=== PATIENT | male | born 1980 | race Caucasian/White ===

== ENCOUNTER 2023-12-17 08:50 | Emergency (ER) | payer OTHER ==
[~2023-12-17] VITALS: Ht 177.8 cm; Wt 122.5 kg
[2023-12-17] MEDS ORDERED: ACETAMINOPHEN 325 MG TAB PO ONE (09:20)
[2023-12-17] MEDS ORDERED: Tdap Vaccine 0.5 ML SYR (Adult Vaccine) IM ONE (09:20)
[2023-12-17] MEDS ORDERED: CEPHALEXIN500 M1 PO (09:22)
[2023-12-17] MEDS ORDERED: CIPRO500 MG PO (09:22)
== END 2023-12-17 09:37 | disposition home or self-care (01) ==
LOC: ED 08:50
DX: S91.332A Puncture wound without foreign body, left foot, initial encounter (principal); W22.8XXA Striking against or struck by other objects, initial encounter; Y93.89 Activity, other specified; Y92.89 Other specified places as the place of occurrence of the external cause; Y99.0 Civilian activity done for income or pay